=== PATIENT | male | born 2000 | race African-American/Black ===

== ENCOUNTER 2024-01-24 07:16 | Emergency (ER) | payer OTHER, SELFPAY ==
[2024-01-24 07:18] VITALS: BP 114/79
--- NOTE | 2024-01-24 07:27 | ED.GENMED ---
History of Present Illness
General
Chief Complaint: Seizure
Time Seen by Provider: 01/24/24 07:27
History of Present Illness
History of Present Illness:
HPI: Patient presents from [facility] after seizure. He has a lip laceration. The patient states he has a seizure disorder but is very vague about prior history. He knows he takes a seizure medication but cannot recall
which one.
EXAM:
GENERAL: Well appearing in no distress
HEENT: Moist oral mucosa, there is a 1.5 cm laceration that extends into the muscle layer and crosses the vermilion border to the right side of the upper, this also extends intraorally
NEUROLOGIC: Excellent strength all extremities, no coordination deficits
PSYCHIATRIC: Flat affect, somewhat withdrawn, insight and judgment are fair
EXTREMITIES: Nontender, no edema, moves all extremities equally, abrasions/wounds noted to the dorsal aspect of the hands
SKIN: As above
TIME OF INITIAL ENCOUNTER: 7:45 AM
NUMBER AND COMPLEXITY OF PROBLEMS ADDRESSED AT THE ENCOUNTER
� Chronic conditions affecting care: Seizure disorder
� Acute Exacerbation and/or Progression of Chronic Illness: This is an acute problem
� Differential Diagnosis includes: Seizure, hypoglycemia, facial laceration
AMOUNT AND/OR COMPLEXITY OF DATA TO BE REVIEWED AND ANALYZED
� I performed an independent evaluation of and my interpretation is:
EKG:
CT: CT head personally reviewed, postsurgical changes/encephalomalacia noted
X-rays:
Laboratory Studies: Blood sugar 176
Other:
� Review of other/old records: No records available for review in [facility], I reviewed the notes from [facility] patient states he has a seizure disorder,
� Clinical information was obtained by an independent historian: I spoke to [facility] officers at bedside
� Prescriptions/Medications Considered but not given:
� Further testing considered but not performed:
RISK OF COMPLICATIONS AND/OR MORBIDITY OR MORTALITY OF PATIENT MANAGEMENT
� Social determinants of health affecting care: Currently at [facility]
� Discussion with other providers: I spoke to the nurses [facility] and recommended Keppra and.
� Escalation of care including admission/observation vs risk of discharge considered: Patient states he has a seizure disorder, however there are no old records here. He states he has never had neuroimaging. CT imaging
obtained. I was in the room multiple times trying to obtain consent from the patient to allow us to repair the wound. He adamantly refuses. We have tried let and lidocaine. He reports that he 'feels numb' but refuses to allow us to proceed with
suturing. I informed him multiple times that there will be a large cosmetic defect and he verbalized understanding of this.
Phy Exam
Physical Exam
Physical Exam:
See HPI
Course
Orders/Labs/Results
Orders:
Orders
01/24/24 07:34
CT Head W/o Iv Contrast Urgent
Comment:
Reason For Exam: seizure, poor historian
Bedside Glucose- Treatment ONCE
01/24/24 08:07
Lidocaine/Epinephrine/Tetracai [Let Topical Anesthetic Gel] 3 ml .ROUTE .STK-MED ONE
01/24/24 08:09
Lidocaine/Epinephrine/Tetracai [Let Topical Anesthetic Gel] 3 ml TOPICAL NOW STA
01/24/24 08:16
Levetiracetam [Keppra] 500 mg PO NOW STA
Abnormal Lab Results
01/24/24
07:35
POC Glucose 178 H mg/dl
(70-99)
Vital Signs
Initial and Last Documented VS:
Initial Vital Signs
Temp Pulse Resp BP Pulse Ox
99.8 F 97 19 114/79 100
01/24/24 07:18 01/24/24 07:18 01/24/24 07:18 01/24/24 07:18 01/24/24 07:18
Last Documented Vital Signs
Temp Pulse Resp BP Pulse Ox
99.8 F 97 19 114/79 100
01/24/24 07:18 01/24/24 07:18 01/24/24 07:18 01/24/24 07:18 01/24/24 07:18
*Critical Care Note
Total Time (30-74mins, 75-104mins- exclusive of procedures): Not Applicable
ED Attending Note
-
Portions of this chart may have been created with voice recognition software.� Occasional wrong word or��sound alike� substitutions may have occurred due to the inherent limitations of voice recognition software.
Discharge Plan
Departure
Patient Disposition: [facility]
Date of Disposition: 01/24/24
Time of Disposition: 09:11
Patient with high blood pressure during this ER visit?: Yes
Discharge Problem:
Complex laceration of face
Instructions: Laceration
Activity Restrictions/Additional Instructions:
I recommend Keppra [address] imaging does show encephalomalacia likely from prior injury/surgery. There is no acute abnormality. Blood sugar is 178. I also recommend 500 mg 2 times a day for 3 days to help prevent infection. I have
attempted to repair the laceration multiple times over the patient adamantly refused to allow us to repair the laceration. I informed him of the cosmetic defect that will be present for the rest of his life.
Interventions
Interventions:
*Risk Screen - Suicide Last Done: 01/24/24 07:18
*General Assessment Last Done: 01/24/24 07:18
*Neglect/Abuse Screening Last Done: 01/24/24 07:18
ED- Fall Risk Assessment Last Done: 01/24/24 07:18
*ED COVID-19 Vaccine History Last Done: 01/24/24 07:18
ED- Cardiac Assessment Last Done: 01/24/24 07:18
ED- Neurological Assessment Last Done: 01/24/24 07:18
ED- Pulmonary Assessment Last Done: 01/24/24 07:18
Discharge Date and Time
Print Language: BELGIAN
[2024-01-24 07:36] LABS: Glucose - Point of Care 178 mg/dl (70-99)
[2024-01-24] MEDS: LET TOPICAL ANESTHETIC GEL 3 ML TOPICAL (08:10)
[2024-01-24] MEDS: KEPPRA 500 MG PO (09:15)
[2024-01-24 09:39] VITALS: BP 120/81
== END 2024-01-24 09:49 ==
LOC: EMR 07:16
PROVIDERS: EMERGENCY PHYSICIAN Emergency Medicine
DX: G40.909 Epilepsy, unspecified, not intractable, without status epilepticus (principal); S01.511A Laceration without foreign body of lip, initial encounter; X58.XXXA Exposure to other specified factors, initial encounter
CPT/HCPCS: 99284; 70450; 82962